=== PATIENT | female | born 1980 | race African-American/Black ===

== ENCOUNTER 2019-12-30 18:36 | Emergency (ER) | payer SELFPAY ==
[~2019-12-30] VITALS: Ht 170.2 cm; Wt 68.0 kg
[2019-12-30] MEDS ORDERED: HYDROCODONE/ACETAMINOPHEN 5/325MG TABLET PO ONE (19:30)
[2019-12-30] MEDS ORDERED: IBUPROFEN 600MG TABLET PO ONE (19:30)
[2019-12-30 20:06] VITALS: BP 121/58
== END 2019-12-30 20:11 | disposition home or self-care (01) ==
LOC: ER 18:36
DX: S20.219A Contusion of unspecified front wall of thorax, initial encounter (principal); V43.52XA Car driver injured in collision with other type car in traffic accident, initial encounter; Y93.89 Activity, other specified; Y92.410 Unspecified street and highway as the place of occurrence of the external cause; Z98.890 Other specified postprocedural states
CPT/HCPCS: 71045; 81025; 99283